=== PATIENT | female | born 1995 | race African-American/Black ===

== ENCOUNTER 2016-12-24 05:21 | Inpatient (IN) ==
[2016-12-24] MEDS ORDERED: KEFZOL 1 GM/D5W 50 ML IV PRN (05:27)
[2016-12-24] MEDS: LR 1,000 ML IV SCH ×2 (05:40→06:24)
[2016-12-24 05:53] LABS: MANUAL DIFF NEEDED? NO; URINE SOURCE VOIDED
[2016-12-24 05:55] LABS: BASO% 0.1 % (0.0-0.8); EOS# 0.05 X1000 (0.0-0.7); EOS% 0.7 % (0.0-10.0); HEMOGLOBIN 10.1 g/dL (12.0-16.0); IMM GRAN# 0.04 X1000 (0.0-0.04); IMM GRAN% 0.5 % (0.0-0.5); LYMPH# 2.19 X1000 (1.2-3.4); LYMPH% 29.3 % (20.5-51.1); MCH 27.2 PG (27-31); MCHC 32.6 g/dL (33-37); MCV 83.3 FL (81-99); MONO# 0.69 X1000 (0.11-0.59); MONO% 9.2 % (1.7-9.3); MPV 9.9 FL (7.4-10.4); NEUT% 60.2 % (42.2-75.2); PLT 185 X1000 (130-400); RBC 3.72 XMIL (4.2-5.4)
[2016-12-24 06:11] LABS: BILIRUBIN URINE NEGATIVE (NEGATIVE); BLOOD URINE NEGATIVE (NEGATIVE); CLARITY CLEAR (CLEAR); COLOR YELLOW; GLUCOSE URINE NEGATIVE (NEGATIVE); LEUKOCYTES URINE 1+ (NEGATIVE); NITRITE URINE NEGATIVE (NEGATIVE); PROTEIN URINE TRACE mg/dL (NEGATIVE); UROBILINOGEN URINE NORMAL
[2016-12-24] MEDS ORDERED: BICITRA ONE (06:18)
[2016-12-24] MEDS ORDERED: PEPCID ONE (06:18)
[2016-12-24] MEDS ORDERED: BENADRYL ONE (06:37)
[2016-12-24] MEDS ORDERED: FENTANYL ONE (06:38)
[2016-12-24] MEDS ORDERED: DURAMORPH ONE (06:39)
[2016-12-24] MEDS ORDERED: PITOCIN ONE (06:39)
[2016-12-24] MEDS ORDERED: LR 0 ML ONE (06:40)
[2016-12-24] MEDS ORDERED: PITOCIN 20 UNITS/LR 1,000 ML ONE (06:40)
[2016-12-24] MEDS ORDERED: HEMABATE ONE (06:41)
[2016-12-24] MEDS ORDERED: METHERGINE ONE (06:42)
[2016-12-24] MEDS ORDERED: EPHEDRINE ONE (07:25)
[2016-12-24] MEDS ORDERED: ZOFRAN ONE (07:25)
[2016-12-24] MEDS ORDERED: HYDROXYZINE PO PRN (08:28)
[2016-12-24] MEDS ORDERED: DULCOLAX PR PRN (08:28)
[2016-12-24] MEDS ORDERED: PITOCIN IM PRN (08:28)
[2016-12-24] MEDS ORDERED: AMBIEN PO PRN (08:28)
[2016-12-24] MEDS ORDERED: CYTOTEC PO PRN (08:28)
[2016-12-24] MEDS ORDERED: MYLICON PO PRN (08:28)
[2016-12-24] MEDS ORDERED: PHENERGAN IM PRN (08:28)
[2016-12-24] MEDS ORDERED: DEMEROL PO PRN ×2 (08:28)
[2016-12-24] MEDS ORDERED: PITOCIN 20 UNITS/LR 1,000 ML IV ONE (08:28)
[2016-12-24] MEDS ORDERED: HYDROXYZINE IM PRN (08:28)
[2016-12-24] MEDS ORDERED: DEMEROL IM PRN (08:28)
[2016-12-24] MEDS ORDERED: SODIUM CHLORIDE 0.9% 10 ML ONE (08:33)
[2016-12-24] MEDS ORDERED: NARCAN INJ PRN (10:29)
[2016-12-24] MEDS ORDERED: ZOFRAN IV PRN ×2 (10:29)
[2016-12-24] MEDS ORDERED: BENADRYL IV PRN (10:29)
[2016-12-24] MEDS ORDERED: ZOFRAN ODT PO PRN (10:29)
[2016-12-24] MEDS ORDERED: NORCO-5 PO PRN (10:30)
[2016-12-24] MEDS ORDERED: NORCO-10 PO PRN (10:30)
[2016-12-24] MEDS: TORADOL IV SCH ×2 (11:34→18:10)
[2016-12-24] MEDS: MYLICON PO SCH ×4 (11:58→20:14)
[2016-12-24] MEDS: PITOCIN 10 UNITS/LR 1,000 ML IV SCH (18:10)
[2016-12-24] MEDS: PERICOLACE PO SCH (20:14)
--- NOTE | 2016-12-24 21:51 | OPERATIVE NOTE ---
PROCEDURE DATE: 12/24/2016 PREOPERATIVE DIAGNOSIS: 1. Primigravida. 2. 21-year-old, 1, para 0 at 38 weeks and 6 days. 3. Breech presentation. 4. Oligohydramnios. POSTOPERATIVE DIAGNOSIS: 1. Primigravida. 2. 21-year-old, 1, para 0 at 38 weeks and 6 days. 3. Breech presentation. 4. Oligohydramnios. 5. Status post primary low transverse section. PROCEDURE: Primary low transverse section. SURGEON: Dr. Dee Dee Cooper. REGULATION SUPERVISOR: Nurse Harden ESTIMATED BLOOD LOSS: 600 mL. ANESTHESIA: Spinal. COMPLICATIONS: None. TECHNIQUE: The patient was seen in the preop holding area where informed consent was reviewed. The patient agreed to proceed with the planned procedure of primary . The patient was taken to the OR, placed in dorsal supine position. The patient was under spinal anesthesia. The patient was prepped and draped in the normal sterile fashion. Anesthesia was found to be adequate. A Pfannenstiel incision was then created through the skin down through to the subcutaneous tissue down to the fascia. The fascia was then opened in the midline and extended laterally with the Davila scissors. The superior edge of the fascia was grasped with the Benja clamps and the rectus muscle were dissected off of the fascia. The same was done to the inferior edge of the fascia. The rectus muscles were opened in the midline. The peritoneum was identified and entered. The peritoneum was then extended superiorly and inferiorly. The bladder flap was then created with the Metzenbaum scissors and the bladder blade was then placed. Uterine incision was made and extended laterally. Clear fluid was noted. The who was in breech position was then delivered atraumatically. The buttocks of the baby was delivered through the uterine incision, followed by right leg and then the left leg. A moist towel was placed over the back of the and the torso was delivered atraumatically, followed by the right arm, then the left arm. The head of the baby was flexed. With assistance from the nurse holding the legs of the baby, the head was then delivered atraumatically. The was bulb suctioned at delivery. The cord was clamped and cut. A three-vessel cord was noted. The was passed off to Pediatrics. The weighed 6 pounds 12 ounces with Apgars of 4 and 9. The placenta was delivered intact manually. The uterus was cleared of all debris. The uterus was then brought through the incision. The uterine incision was closed with 0 Vicryl in a locked fashion. Another layer of 0 Vicryl was used for imbrication. Good hemostasis was noted. The uterus was then replaced into the abdominal cavity. Irrigation was carried out. Surgicel was placed over the uterine incision. Good hemostasis was again noted. The peritoneum was reapproximated using running sutures of 3-0 Vicryl. The fascia was reapproximated using running sutures of 0 Vicryl. The subcutaneous tissue was reapproximated using running sutures of 2-0 Vicryl, and the skin was closed with running sutures of 3-0 Monocryl. All counts were correct x2. The patient tolerated the procedure well and was taken to recovery in stable condition. [facility]
[2016-12-25] MEDS: TORADOL IV SCH (00:36)
[2016-12-25] MEDS: PITOCIN 10 UNITS/LR 1,000 ML IV SCH (01:57)
[2016-12-25 05:57] LABS: MANUAL DIFF NEEDED? NO
[2016-12-25] MEDS ORDERED: LR 1,000 ML IV SCH (08:28)
[2016-12-25] MEDS: MOTRIN PO PRN ×2 (09:06→19:53)
[2016-12-25 10:03] LABS: BASO% 0.1 % (0.0-0.8); EOS# 0.07 X1000 (0.0-0.7); EOS% 0.7 % (0.0-10.0); HEMATOCRIT 26.9 % (37.0-47.0); HEMOGLOBIN 8.5 g/dL (12.0-16.0); IMM GRAN# 0.02 X1000 (0.0-0.04); IMM GRAN% 0.2 % (0.0-0.5); LYMPH# 2.16 X1000 (1.2-3.4); LYMPH% 21.7 % (20.5-51.1); MCH 26.6 PG (27-31); MCHC 31.6 g/dL (33-37); MCV 84.1 FL (81-99); MONO# 1.05 X1000 (0.11-0.59); MONO% 10.5 % (1.7-9.3); MPV 10.5 FL (7.4-10.4); NEUT% 66.8 % (42.2-75.2); PLT 190 X1000 (130-400)
[2016-12-25] MEDS ORDERED: PERCOCET-5 PO PRN (10:36)
[2016-12-25] MEDS: MYLICON PO SCH ×6 (11:18→22:09)
[2016-12-25] MEDS: FERROUS SULFATE PO SCH ×3 (11:23→20:00)
[2016-12-25] MEDS: PERCOCET-10 PO PRN (17:59)
[2016-12-25] MEDS: PERICOLACE PO SCH ×2 (19:51→20:00)
[2016-12-26] MEDS: MOTRIN PO PRN (08:10)
[2016-12-26] MEDS: MYLICON PO SCH ×2 (08:10→12:45)
[2016-12-26] MEDS: FERROUS SULFATE PO SCH (08:11)
[2016-12-26] MEDS: PERCOCET-10 PO PRN (10:54)
[2016-12-26 10:59] VITALS: BP 128/65
--- NOTE | 2016-12-26 13:07 | OB/GYN PROGRESS NOTE ---
Progress Note OB - . OB Progress Note: Vital Signs - 24 hr 12/25/16 12/25/16 12/25/16 16:40 19:47 20:35 Temperature 98.5 F Pulse Rate 73 71 71 Respiratory 18 16 16 Rate Blood Pressure 123/59 O2 Sat by Pulse 99 100 100 Oximetry 12/26/16 12/26/16 12/26/16 00:00 08:03 10:55 Temperature 98.4 F 97.7 F 97.6 F Pulse Rate 70 70 77 Respiratory 16 16 20 Rate Blood Pressure 105/55 116/59 128/65 O2 Sat by Pulse 100 99 99 Oximetry Patient doing well without complaint. Ambulating and voiding without difficulty. Bottle feeding. Tolerating diet. Pain well controlled. Exam Gen: NAD, alert Abd: soft, nontender, fundus firm and at umbilicus, incision clean dry and intact with steri strips in place Pelvic: minimal lochia rubra Ext: nontender, no edema, Wellington's- A/P: 21yo POD#1 s/p PLTCS for oligohydramnios, breech presentation, doing well -continue routine post-op/ care -ferrous sulfate BID -continue regular diet -PO pain meds -encourage ambulation Dispo: home tomorrow -Dee Dee Cooper MD [employer] LATHE SET UP OPERATOR
== END 2016-12-26 15:00 | disposition home or self-care (01) | DRG 765 ==
LOC: P.LD 05:21 → P.WC 10:04
PROVIDERS: ADMIT Student in an Organized Health Care Education/Training Program; ATTEND Student in an Organized Health Care Education/Training Program
PROC: 10D00Z1 Extraction of Products of Conception, Low, Open Approach (ICD-10-PCS; principal; 2016-12-24 07:00)
DX: O32.1XX0 Maternal care for breech presentation, not applicable or unspecified (principal); O41.03X0 Oligohydramnios, third trimester, not applicable or unspecified; Z37.0 Single live birth; Z3A.39 39 weeks gestation of pregnancy
CPT/HCPCS: 59025; 81003; 85025; 86592; 86850; 86900; 86901; 94799; J0690; J1200; J1885; J2210; J2274; J2405; J2590; J3010; J7120; S0028

== ENCOUNTER 2016-12-27 12:09 | Emergency (ER) ==
[2016-12-27 12:19] VITALS: BP 129/61
--- NOTE | 2016-12-27 14:01 | PROVIDER DOCUMENTATION ---
HPI-Headache - General Chief Complaint: Headache Stated Complaint: HEADACHES/POST PREG 12/24 Time Seen by Provider: 12/27/16 12:56 Allergies/Adverse Reactions: Patient Allergies Allergy/AdvReac Type Severity Reaction Status Date / Time No Known Allergies Allergy Verified 12/02/16 15:32 Home Medications: Home Medication List Medication Instructions Recorded Confirmed Last Taken Type Vit Calc,Iron,Folic 1 each PO DAILY 12/02/16 12/02/16 Unknown History [ Vitamins] Ferrous Sulfate 325 mg PO BID #60 tablet 12/26/16 Unknown Rx Ibuprofen [Motrin] 800 mg PO Q6H PRN PRN #30 tablet 12/26/16 Unknown Rx Oxycodone/APAP 5 mg/325 mg 1 each PO Q4H PRN PRN #30 tablet 12/26/16 Unknown Rx [Percocet-5] Past History - Adult - PAST MEDICAL HISTORY-ADULT Major Childhood Illnesses: reports: denies history Departure - Departure Time of Disposition Order: 14:00 DIAGNOSIS: Postoperative spinal headache Disposition: HOME 01 Certified Medical Emergency: Emergent Condition: Stable Additional Instructions: ED Follow Up Instructions: You have been treated by a care provider in the Emergency Department. These instructions are being provided to you so you can have an understanding of how to care for yourself upon discharge. Upon discharge from the Emergency Department, you are responsible for making arrangements for follow-up care by a physician of your choice. Take all prescribed medications as directed. Return to the Emergency Department immediately for any new or worsening symptoms. You may call the Physician Referral phone number at [phone] to obtain a list of Physicians who are taking new patients. Referrals: None,PCP [Primary Care Provider] - Nikolas Rdz MD [STAFF PHYSICIAN] -
== END 2016-12-27 14:15 | disposition home or self-care (01) ==
LOC: P.ED 12:09
DX: O89.4 Spinal and epidural anesthesia-induced headache during the puerperium (principal)
CPT/HCPCS: 99281

== ENCOUNTER 2020-02-02 22:18 | Inpatient (IN) ==
[2020-02-02 23:31] LABS: URINE SOURCE VOIDED
[2020-02-02 23:57] LABS: BILIRUBIN URINE NEGATIVE (NEGATIVE); COLOR RED; GLUCOSE URINE NEGATIVE (NEGATIVE); KETONE URINE TRACE mg/dL (NEGATIVE); TURBIDITY URINE TURBID (CLEAR)
[2020-02-02 23:58] LABS: BLOOD URINE LARGE (NEGATIVE); LEUKOCYTES URINE SMALL (NEGATIVE); NITRITE URINE NEGATIVE (NEGATIVE); PROTEIN URINE 10 mg/dL (NEGATIVE); UROBILINOGEN URINE NORMAL (NORMAL)
[2020-02-03] MEDS ORDERED: NS 1,000 ML IV ONE ×2 (01:07→09:30)
[2020-02-03 01:38] LABS: AGAP 16; ALKALINE PHOSPHATASE 78 U/L (32-104); BUN 10 mg/dL (8-22); CALCIUM 9.7 mg/dL (8.8-10.2); CHLORIDE 101 mmol/L (98-107); COSMO 277; CREATININE 0.8 mg/dL (0.5-0.9); ESTIMATED GFR > 60; GLUCOSE 133 mg/dL (70-104); GOT 52 U/L (10-30); GPT 22 U/L (10-36); POTASSIUM 3.3 mmol/L (3.5-5.1); SODIUM 138 mmol/L (136-145); TCO2 21 mmol/L (25-35)
[2020-02-03 01:47] LABS: BASO# 0.01 X1000 (0.0-0.2); EOS# 0.02 X1000 (0.0-0.7); EOS% 0.1 % (0.0-10.0); HEMATOCRIT 37.1 % (37.0-47.0); HEMOGLOBIN 11.6 g/dL (12.0-16.0); IMM GRAN# 0.07 X1000 (0.0-0.04); IMM GRAN% 0.3 % (0.0-0.5); LYMPH# 0.92 X1000 (1.2-3.4); LYMPH% 4.5 % (20.5-51.1); MCH 26.1 PG (27-31); MCHC 31.3 g/dL (33-37); MCV 83.6 FL (81-99); MONO# 0.35 X1000 (0.11-0.59); MONO% 1.7 % (1.7-9.3); MPV 10.8 FL (7.4-10.4); NEUT# 19.25 X1000 (1.4-6.5); NEUT% 93.4 % (42.2-75.2); PLT 360 X1000 (130-400); RBC 4.44 XMIL (4.2-5.4); RDW 15.3 % (11.5-14.5); WBC 20.62 X1000 (4.8-10.8)
[2020-02-03 01:48] LABS: ANISOCYTOSIS 1+; BANDS 12 % (0-1); LYMPHS 7 % (21-51); SEGS 81 % (42-75)
[2020-02-03] MEDS ORDERED: FLAGYL PO ONE ×3 (03:34→04:18)
[2020-02-03] MEDS ORDERED: MORPHINE IV PRN ×2 (03:35→09:15)
[2020-02-03] MEDS ORDERED: CIPRO 400 MG/D5W 400 MG/200 ML IVPB IV SCH (03:45)
[2020-02-03] MEDS ORDERED: FLAGYL ONE (03:52)
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
[2020-02-03 09:58] LABS: BASO# 0.02 X1000 (0.0-0.2); BASO% 0.1 % (0.0-0.8); HEMOGLOBIN 10.6 g/dL (12.0-16.0); IMM GRAN# 0.49 X1000 (0.0-0.04); IMM GRAN% 1.6 % (0.0-0.5); LYMPH# 1.07 X1000 (1.2-3.4); LYMPH% 3.5 % (20.5-51.1); MCH 25.2 PG (27-31); MCHC 30.3 g/dL (33-37); MCV 83.1 FL (81-99); MONO# 0.67 X1000 (0.11-0.59); MONO% 2.2 % (1.7-9.3); MPV 9.5 FL (7.4-10.4); NEUT# 27.91 X1000 (1.4-6.5); NEUT% 92.6 % (42.2-75.2); PLT 345 X1000 (130-400); RBC 4.21 XMIL (4.2-5.4); RDW 15.5 % (11.5-14.5); WBC 30.16 X1000 (4.8-10.8)
[2020-02-03 10:21] LABS: AGAP 14; ALBUMIN 3.5 g/dL (3.5-5.0); ALKALINE PHOSPHATASE 74 U/L (32-104); BUN 9 mg/dL (8-22); CALCIUM 9.3 mg/dL (8.8-10.2); CHLORIDE 103 mmol/L (98-107); COSMO 279; CREATININE 0.7 mg/dL (0.5-0.9); ESTIMATED GFR > 60; GLUCOSE 111 mg/dL (70-104); GOT 40 U/L (10-30); GPT 21 U/L (10-36); POTASSIUM 3.4 mmol/L (3.5-5.1); SODIUM 140 mmol/L (136-145); TCO2 23 mmol/L (25-35); TOTAL PROTEIN 7.2 g/dL (6.3-8.3)
[2020-02-03 10:22] LABS: BANDS 15 % (0-1); LYMPHS 7 % (21-51); MONO 2 % (1-9); SEGS 76 % (42-75)
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
[2020-02-03] MEDS: PROTONIX IV SCH (12:10)
[2020-02-03] MEDS: OFIRMEV 1000 MG/ISOTONIC SOLN 1,000 MG/100 ML BOTTLE IV SCH ×2 (12:11→17:00)
[2020-02-03] MEDS: LEVAQUIN 750 MG/D5W 750 MG/150 ML IVPB IV SCH (12:12)
[2020-02-03] MEDS: FLAGYL 500 MG/NS 500 MG/100 ML IVPB IV SCH ×2 (12:12→19:59)
[2020-02-03] MEDS: NS 1,000 ML IV SCH ×2 (12:12→19:00)
[2020-02-04] MEDS: OFIRMEV 1000 MG/ISOTONIC SOLN 1,000 MG/100 ML BOTTLE IV SCH ×4 (00:09→18:35)
[2020-02-04] MEDS: NS 1,000 ML IV SCH ×4 (02:07→21:26)
[2020-02-04] MEDS: FLAGYL 500 MG/NS 500 MG/100 ML IVPB IV SCH ×3 (03:58→21:23)
[2020-02-04 06:15] LABS: BASO# 0.01 X1000 (0.0-0.2); EOS# 0.19 X1000 (0.0-0.7); EOS% 0.9 % (0.0-10.0); HEMATOCRIT 33.7 % (37.0-47.0); HEMOGLOBIN 10.2 g/dL (12.0-16.0); IMM GRAN# 0.08 X1000 (0.0-0.04); IMM GRAN% 0.4 % (0.0-0.5); LYMPH# 0.96 X1000 (1.2-3.4); LYMPH% 4.7 % (20.5-51.1); MCH 25.2 PG (27-31); MCHC 30.3 g/dL (33-37); MCV 83.2 FL (81-99); MONO# 0.53 X1000 (0.11-0.59); MONO% 2.6 % (1.7-9.3); NEUT# 18.87 X1000 (1.4-6.5); NEUT% 91.4 % (42.2-75.2); PLT 332 X1000 (130-400); RBC 4.05 XMIL (4.2-5.4); RDW 15.4 % (11.5-14.5); WBC 20.64 X1000 (4.8-10.8)
[2020-02-04 06:16] LABS: AGAP 14; ALBUMIN 2.9 g/dL (3.5-5.0); ALKALINE PHOSPHATASE 72 U/L (32-104); BUN 9 mg/dL (8-22); CALCIUM 9.1 mg/dL (8.8-10.2); CHLORIDE 106 mmol/L (98-107); COSMO 276; CREATININE 0.7 mg/dL (0.5-0.9); ESTIMATED GFR > 60; GLUCOSE 87 mg/dL (70-104); GOT 38 U/L (10-30); GPT 18 U/L (10-36); POTASSIUM 3.2 mmol/L (3.5-5.1); SODIUM 139 mmol/L (136-145); TCO2 20 mmol/L (25-35); TOTAL PROTEIN 6.8 g/dL (6.3-8.3)
[2020-02-04 06:36] LABS: EOS 1 % (1-10); LYMPHS 7 % (21-51); MONO 3 % (1-9); SEGS 89 % (42-75)
[2020-02-04] MEDS: LEVAQUIN 750 MG/D5W 750 MG/150 ML IVPB IV SCH (08:42)
[2020-02-04] MEDS: PROTONIX IV SCH (08:42)
[2020-02-04] MEDS: SODIUM CHLORIDE 0.9% INJ SCH (08:42)
[2020-02-04] MEDS ORDERED: KLOR-CON PO ONE (09:10)
--- NOTE | 2020-02-04 10:21 | PROGRESS NOTE ---
DATE: 02/04/2020 SUBJECTIVE: The patient reports that there is still abdominal pain in the left lower quadrant but getting better. Denies any nausea or vomiting. OBJECTIVE: Vital Signs: Temperature 98.5 degrees, heart rate 90, respiratory 16, blood pressure 108/53, O2 saturation 100% on room air. General: This is a 24-year-old female, lying in bed, in no acute distress. Cardiovascular: S1, S2 heard. No murmurs, gallops, or rubs. Regular rate and rhythm. Respiratory: Clear bilaterally to auscultation. No work of breathing or using accessory muscles. Abdomen: Soft. Mild generalized tenderness noted. No signs of peritoneal irritation. Bowel sounds present. No organomegaly. Extremities: No clubbing, cyanosis, or edema. Peripheral pulses present in both legs. Neurological: Patient is alert and oriented x3. Moves 4 extremities. LABORATORY DATA: Reviewed. ASSESSMENT AND PLAN: 1. Ileus versus enteritis. White cell count is still elevated but better in comparing with yesterday. We have checked because CBC yesterday and the white count was 30,000 but today is 20,000, still symptomatic with some abdominal pain but no nausea, vomiting, so we will continue with the same management. We will keep this patient over the weekend and if she is clinically feeling better and blood tests start to normalize, then we will let her go. 2. Mild hypokalemia. We are going to replete potassium. 3. Disposition. We will continue with Levaquin and Flagyl. We will monitor this patient closely. cc: Checo Summers MD
[2020-02-04] MEDS: MORPHINE IV PRN (14:52)
[2020-02-05] MEDS: OFIRMEV 1000 MG/ISOTONIC SOLN 1,000 MG/100 ML BOTTLE IV SCH ×4 (00:58→18:28)
[2020-02-05] MEDS: FLAGYL 500 MG/NS 500 MG/100 ML IVPB IV SCH ×3 (03:44→21:58)
[2020-02-05 05:49] LABS: BASO# 0.01 X1000 (0.0-0.2); BASO% 0.1 % (0.0-0.8); EOS# 0.19 X1000 (0.0-0.7); EOS% 1.1 % (0.0-10.0); HEMOGLOBIN 9.3 g/dL (12.0-16.0); IMM GRAN# 0.04 X1000 (0.0-0.04); IMM GRAN% 0.2 % (0.0-0.5); LYMPH# 1.28 X1000 (1.2-3.4); LYMPH% 7.6 % (20.5-51.1); MCH 24.9 PG (27-31); MCV 82.9 FL (81-99); MONO# 0.63 X1000 (0.11-0.59); MONO% 3.7 % (1.7-9.3); MPV 9.7 FL (7.4-10.4); NEUT# 14.77 X1000 (1.4-6.5); NEUT% 87.3 % (42.2-75.2); PLT 365 X1000 (130-400); RBC 3.74 XMIL (4.2-5.4); RDW 15.5 % (11.5-14.5); WBC 16.92 X1000 (4.8-10.8)
[2020-02-05 05:57] LABS: AGAP 11; ALBUMIN 2.8 g/dL (3.5-5.0); ALKALINE PHOSPHATASE 74 U/L (32-104); BUN 4 mg/dL (8-22); CALCIUM 8.7 mg/dL (8.8-10.2); CHLORIDE 107 mmol/L (98-107); COSMO 272; CREATININE 0.6 mg/dL (0.5-0.9); ESTIMATED GFR > 60; GLUCOSE 97 mg/dL (70-104); GOT 30 U/L (10-30); GPT 15 U/L (10-36); POTASSIUM 3.4 mmol/L (3.5-5.1); SODIUM 138 mmol/L (136-145); TCO2 20 mmol/L (25-35); TOTAL PROTEIN 6.5 g/dL (6.3-8.3)
[2020-02-05] MEDS: NS 1,000 ML IV SCH ×3 (06:06→17:11)
[2020-02-05 06:12] LABS: EOS 3 % (1-10); LYMPHS 16 % (21-51); MONO 2 % (1-9); SEGS 79 % (42-75)
[2020-02-05] MEDS ORDERED: KLOR-CON PO ONE (09:22)
[2020-02-05] MEDS: PROTONIX IV SCH (10:09)
[2020-02-05] MEDS: LEVAQUIN 750 MG/D5W 750 MG/150 ML IVPB IV SCH (10:10)
[2020-02-05] MEDS: SODIUM CHLORIDE 0.9% INJ SCH (10:10)
--- NOTE | 2020-02-05 11:01 | PROGRESS NOTE ---
DATE: 02/05/2020 SUBJECTIVE: Patient reports feeling fine. Abdominal pain is still present on and off but definitely much better in comparing with admission. Actually, she wants to try a more consistent diet. She said also had 4 episodes of diarrhea this morning. OBJECTIVE: Vital signs: Temperature 98.8 degrees, heart rate 89, respiratory rate 16, blood pressure 119/69, O2 saturation 100% on room air. General: This is a 24-year-old female lying in bed, in no acute distress. Cardiovascular: S1, S2 heard. No murmurs, gallops or rubs. Regular rate and rhythm. Respiratory: Clear bilaterally to auscultation. No work of breathing or using accessory muscles. Abdomen: Soft, nontender to palpation. Bowel sounds present. No organomegaly. Extremities: No clubbing, cyanosis or edema. Peripheral pulses in both legs. Neurologic: Patient is alert and oriented x3, moves 4 extremities. LABORATORY DATA: Reviewed and white cell count is 16,000. ASSESSMENT AND PLAN: 1. Ileus versus enteritis. White cell count is definitely improving. I think at this point, we will continue with the same antibiotic management. We will keep her, as we mentioned before, over the weekend and if she is feeling fine on Friday and labs are also okay, we will let her go. 2. Mild hypokalemia. Potassium is still low at 3.4, it is almost back to normal. We will replenish potassium today. 3. Disposition. We will continue with current antibiotic management. She has been having diarrhea so we will order some stool studies and we will go from there. cc: Checo Summers MD
[2020-02-06] MEDS: OFIRMEV 1000 MG/ISOTONIC SOLN 1,000 MG/100 ML BOTTLE IV SCH ×3 (00:22→11:34)
[2020-02-06] MEDS: MORPHINE IV PRN (02:34)
[2020-02-06] MEDS: NS 1,000 ML IV SCH (02:34)
[2020-02-06] MEDS: FLAGYL 500 MG/NS 500 MG/100 ML IVPB IV SCH ×2 (03:43→11:34)
[2020-02-06 05:50] LABS: BASO# 0.01 X1000 (0.0-0.2); BASO% 0.1 % (0.0-0.8); EOS# 0.13 X1000 (0.0-0.7); EOS% 1.1 % (0.0-10.0); HEMOGLOBIN 8.8 g/dL (12.0-16.0); IMM GRAN# 0.04 X1000 (0.0-0.04); IMM GRAN% 0.3 % (0.0-0.5); LYMPH# 1.99 X1000 (1.2-3.4); LYMPH% 16.7 % (20.5-51.1); MCHC 30.3 g/dL (33-37); MCV 82.4 FL (81-99); MONO# 0.82 X1000 (0.11-0.59); MONO% 6.9 % (1.7-9.3); MPV 9.3 FL (7.4-10.4); NEUT% 74.9 % (42.2-75.2); PLT 358 X1000 (130-400); RBC 3.52 XMIL (4.2-5.4); RDW 15.9 % (11.5-14.5); WBC 11.89 X1000 (4.8-10.8)
[2020-02-06 06:04] LABS: AGAP 11; ALBUMIN 2.5 g/dL (3.5-5.0); ALKALINE PHOSPHATASE 59 U/L (32-104); BUN 5 mg/dL (8-22); CALCIUM 8.5 mg/dL (8.8-10.2); CHLORIDE 108 mmol/L (98-107); COSMO 276; CREATININE 0.6 mg/dL (0.5-0.9); ESTIMATED GFR > 60; GLUCOSE 91 mg/dL (70-104); GOT 25 U/L (10-30); GPT 14 U/L (10-36); POTASSIUM 3.5 mmol/L (3.5-5.1); SODIUM 140 mmol/L (136-145); TCO2 21 mmol/L (25-35); TOTAL PROTEIN 6.3 g/dL (6.3-8.3)
[2020-02-06 08:38] VITALS: BP 128/65
[2020-02-06] MEDS: LEVAQUIN 750 MG/D5W 750 MG/150 ML IVPB IV SCH (08:50)
[2020-02-06] MEDS: PROTONIX IV SCH (08:51)
[2020-02-06] MEDS: SODIUM CHLORIDE 0.9% INJ SCH (08:51)
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
== END 2020-02-06 12:10 | disposition home or self-care (01) | DRG 372 ==
LOC: P.ED 22:18 → P.MEDSURG 02-03 04:16
PROVIDERS: ATTEND Internal Medicine